=== PATIENT | female | born 1985 | race Caucasian/White ===

== ENCOUNTER 2018-04-02 20:37 | Emergency (ER) | payer SELFPAY ==
--- NOTE | 2018-04-02 22:00 | EDM.PDOC ---
ED HPI GENERAL MEDICAL PROBLEM - General Chief Complaint: Flank Pain Stated Complaint: KIDNEY PAIN Time Seen by Provider: 04/02/18 22:00 Source of Information: Reports: Patient History Limitations: Reports: No Limitations - History of Present Illness INITIAL COMMENTS - FREE TEXT/NARRATIVE: 2-year-old female presents to the [facility] flank painthat stayed in her left flank. Came on about 1730 hrs. tonight. She has a history of renal stones but hasn't had stone for a couple of years. She also however has a right flank pelon- abdominal pain rating down to the groin. Should fever chills nausea or vomiting. She's had urinary tract infections related to stone disease in the past. She's had no dysuria urgency frequency or foul smell to her urine. Has noticed no nose any blood in the urine. Associated nausea without any vomiti. She did not eat any supper. She's had previous total bowel hysterectomy and BSO because of precancerous changes to the cervix and also large left ovarian cyst that looked worrisome. She does get occasional hot flushes from menopausal symptoms Onset: Today Onset Date: 04/02/18 Onset Time: 17:30 Duration: Hour(s): Location: Reports: Back (left and right flank pain left is the worst.), Radiates to (ight flank pain radiates down to the groin.) Quality: Reports: Ache, Sharp, Stabbing, Other Severity: Moderate (ll acute component to the pain) Improves with: Reports: None (10.) Worsens with: Reports: None Context: Denies: Activity (no position is carpal), Exercise, Lifting, Sick Contact, Trauma, Other Associated Symptoms: Reports: Loss of Appetite, Nausea/Vomiting. 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: Other (see below) (none.) Left Flank Pain Score (Numeric/FACES): 8 - Related Data Allergies Allergy/AdvReac Type Severity Reaction Status Date / Time No Known Allergies Allergy Verified 04/02/18 21:01 Home Meds: Home Meds Hydrochlorothiazide 25 mg PO DAILY 04/02/18 [History] Lisinopril 10 mg PO DAILY 04/02/18 [History] Potassium Chloride 10 meq PO DAILY 04/02/18 [History] Past Medical History Cardiovascular History: Reports: Hypertension - Past Surgical History GI Surgical History: Reports: Hernia Repair/Other Female Surgical History: Reports: Hysterectomy, Kidney stone extraction Musculoskeletal Surgical History: Reports: Shoulder Surgery Social & Family History - Tobacco Use Smoking Status *Q: Current Every Day Smoker Years of Tobacco use: 15 Packs/Tins Daily: 0.5 - Caffeine Use Caffeine Use: Reports: Soda - Alcohol Use Alcohol Use History: Yes - Recreational Drug Use Recreational Drug Use: No - Living Situation & Occupation Occupation: Employed ED ROS GENERAL - Review of Systems Review Of Systems: See Below Constitutional: Reports: Malaise, Weakness, Fatigue, Decreased Appetite. Denies : Fever, Chills HEENT: Reports: No Symptoms Respiratory: Reports: No Symptoms Cardiovascular: Reports: No Symptoms Endocrine: Reports: No Symptoms GI/Abdominal: Reports: Abdominal Pain (right pelon-abdominal pain rating down to the right groin.Sourav the right flank however.) : Reports: Flank Pain, Frequency. Denies: Discharge, Dysuria, Irregular Menses, Pain, Urgency (ateral flank pain worse in the left as compared to the right.), Urinary Retention Musculoskeletal: Reports: Back Pain (bilateral flank pain) Skin: Reports: No Symptoms Neurological: Reports: No Symptoms Psychiatric: Reports: No Symptoms Hematologic/Lymphatic: Reports: No Symptoms Immunologic: Reports: No Symptoms ED EXAM,LOWER BACK PAIN/INJURY - Physical Exam Exam: See Below Exam Limited By: No Limitations General Appearance: Alert, WD/WN, Mild Distress Eye Exam: Bilateral Eye: Normal Inspection Neck: Normal Inspection, Supple, Non-Tender, Full Range of Motion. No: Lymphadenopathy (L), Lymphadenopathy (R) Respiratory/Chest: No Respiratory Distress, Lungs Clear, Normal Breath Sounds, No Accessory Muscle Use Cardiovascular: Regular Rate, Rhythm, No Edema, No Murmur, No Rub, Tachycardia ( achycardia at rest 10 5/m.) GI/Abdominal: Normal Bowel Sounds, Soft, Non-Tender, No Organomegaly, Pelvis Stable, Tender. No: Guarding, Rigid (tenderness right upper quadrant of the abdomen and right hemiabdomen. No masses or rebound or guarding noted), Rebound Back Exam: CVA Tenderness (L), CVA Tenderness (R) (bilaterally we on the left as compared to the right.) Extremities: Normal Inspection, Normal Range of Motion, Non-Tender, No Pedal Edema Neurological: Alert, Normal Mood/Affect, Normal Dorsiflexion, CN II-XII Intact Psychiatric: Normal Affect, Normal Mood Skin Exam: Warm, Dry, Intact, Normal Color, No Rash Course - Vital Signs Last Recorded V/S: Last Vital Signs Temp 36.8 C 04/02/18 20:58 Pulse 105 H 04/02/18 20:58 Resp 18 04/02/18 20:58 BP 129/89 04/02/18 20:58 Pulse Ox 99 04/02/18 20:58 - Orders/Labs/Meds Orders: Active Orders 24 hr Category Date Time Status Abdomen Pelvis w Cont [CT] Stat Exams 04/03/18 00:03 Taken Abdomen Pelvis wo Cont [CT] Stat Exams 04/02/18 22:07 Taken Dextrose 5%-0.9% NaCl [Dextrose 5%-Normal Saline] 1,000 Med 04/02/18 22:15 Active ml IV ASDIRECTED Medication Orders Dextrose/Sodium Chloride (Dextrose 5%-Normal Saline) 1,000 mls @ 150 mls/hr IV ASDIRECTED JANE Last Admin: 04/02/18 22:16 Dose: 150 mls/hr Labs: Laboratory Tests 04/02/18 04/02/18 04/02/18 Range/Units 00:00 00:00 00:00 WBC 9.51 (3.98-10.04) K/mm3 RBC 4.27 (3.98-5.22) M/mm3 Hgb 15.2 (11.2-15.7) gm/L Hct 42.1 (34.1-44.9) % MCV 98.6 H (79.4-94.8) fl MCH 35.6 H (25.6-32.2) pg MCHC 36.1 H (32.2-35.5) g/dl RDW Std Deviation 43.8 (36.4-46.3) fL Plt Count 184 (182-369) K/mm3 MPV 12.3 (9.4-12.3) fl Neutrophils % (Manual) 72 H (40-60) % Band Neutrophils % 0 (0-10) % Lymphocytes % (Manual) 21 (20-40) % Atypical Lymphs % 0 % Monocytes % (Manual) 4 (2-10) % Eosinophils % (Manual) 0 L (0.7-5.8) % Basophils % (Manual) 3 H (0.1-1.2) Platelet Estimate Adequate Plt Morphology Comment Normal RBC Morph Comment Normal D-Dimer, Quantitative < 0.19 L (0.19-0.50) mg/L Sodium 134 L (136-145) mEq/L Potassium 2.9 L (3.5-5.1) mEq/L Chloride 95 L (98-107) mEq/L Carbon Dioxide 28 (21-32) mEq/L Anion Gap 13.9 (5-15) BUN 11 (7-18) mg/dL Creatinine 0.8 (0.55-1.02) mg/dL Est Cr Clr Drug Dosing 77.35 mL/min Estimated GFR (MDRD) > 60 (>60) mL/min BUN/Creatinine Ratio 13.8 L (14-18) Glucose 96 (74-106) mg/dL Lactic Acid (0.4-2.0) mmol/L Calcium 9.4 (8.5-10.1) mg/dL Total Bilirubin 1.8 H (0.2-1.0) mg/dL AST 126 H (15-37) U/L ALT 79 H (14-59) U/L Alkaline Phosphatase 109 (46-116) U/L C-Reactive Protein < 0.2 (<1.0) mg/dL Total Protein 8.0 (6.4-8.2) g/dl Albumin 4.4 (3.4-5.0) g/dl Globulin 3.6 gm/dL Albumin/Globulin Ratio 1.2 (1-2) Urine Color (Yellow) Urine Appearance (Clear) Urine pH (5.0-8.0) Ur Specific [place] (1.005-1.030) Urine Protein (Negative) Urine Glucose (UA) (Negative) Urine Ketones (Negative) Urine Occult Blood (Negative) Urine Nitrite (Negative) Urine Bilirubin (Negative) Urine Urobilinogen (0.2-1.0) Ur Leukocyte Esterase (Negative) Urine RBC (0-5) /hpf Urine WBC (0-5) /hpf Ur Epithelial Cells (0-5) /hpf Urine Bacteria (FEW) /hpf Hyaline Casts (0-5) /lpf Urine Mucus (FEW) /hpf Acetaminophen 0 L (10-30) ug/mL 04/02/18 04/02/18 Range/Units 21:05 23:58 WBC (3.98-10.04) K/mm3 RBC (3.98-5.22) M/mm3 Hgb (11.2-15.7) gm/L Hct (34.1-44.9) % MCV (79.4-94.8) fl MCH (25.6-32.2) pg MCHC (32.2-35.5) g/dl RDW Std Deviation (36.4-46.3) fL Plt Count (182-369) K/mm3 MPV (9.4-12.3) fl Neutrophils % (Manual) (40-60) % Band Neutrophils % (0-10) % Lymphocytes % (Manual) (20-40) % Atypical Lymphs % % Monocytes % (Manual) (2-10) % Eosinophils % (Manual) (0.7-5.8) % Basophils % (Manual) (0.1-1.2) Platelet Estimate Plt Morphology Comment RBC Morph Comment D-Dimer, Quantitative (0.19-0.50) mg/L Sodium (136-145) mEq/L Potassium (3.5-5.1) mEq/L Chloride (98-107) mEq/L Carbon Dioxide (21-32) mEq/L Anion Gap (5-15) BUN (7-18) mg/dL Creatinine (0.55-1.02) mg/dL Est Cr Clr Drug Dosing mL/min Estimated GFR (MDRD) (>60) mL/min BUN/Creatinine Ratio (14-18) Glucose (74-106) mg/dL Lactic Acid 0.6 (0.4-2.0) mmol/L Calcium (8.5-10.1) mg/dL Total Bilirubin (0.2-1.0) mg/dL AST (15-37) U/L ALT (14-59) U/L Alkaline Phosphatase (46-116) U/L C-Reactive Protein (<1.0) mg/dL Total Protein (6.4-8.2) g/dl Albumin (3.4-5.0) g/dl Globulin gm/dL Albumin/Globulin Ratio (1-2) Urine Color Dark yellow (Yellow) Urine Appearance Cloudy H (Clear) Urine pH 6.0 (5.0-8.0) Ur Specific [place] > or = 1.030 (1.005-1.030) Urine Protein 2+ H (Negative) Urine Glucose (UA) Negative (Negative) Urine Ketones Trace H (Negative) Urine Occult Blood Negative (Negative) Urine Nitrite Negative (Negative) Urine Bilirubin 1+ H (Negative) Urine Urobilinogen 1.0 (0.2-1.0) Ur Leukocyte Esterase Negative (Negative) Urine RBC 0-5 (0-5) /hpf Urine WBC 0-5 (0-5) /hpf Ur Epithelial Cells 10-20 H (0-5) /hpf Urine Bacteria Many H (FEW) /hpf Hyaline Casts 10-20 H (0-5) /lpf Urine Mucus Few (FEW) /hpf Acetaminophen (10-30) ug/mL Meds: Medications Generic Name Dose Route Start Last Admin Trade Name Freq PRN Reason Stop Dose Admin Dextrose/Sodium Chloride 1,000 mls @ 150 mls/hr 04/02/18 22:15 04/02/18 22:16 Dextrose 5%-Normal Saline IV 150 mls/hr ASDIRECTED JANE Administration Discontinued Medications Generic Name Dose Route Start Last Admin Trade Name Freq PRN Reason Stop Dose Admin Hydromorphone HCl 0.5 mg 04/02/18 22:06 04/02/18 22:17 Dilaudid IVPUSH 04/02/18 22:07 0.5 mg ONETIME ONE Administration Iopamidol 125 ml 04/03/18 00:22 04/03/18 00:39 Isovue-300 (61%) IVPUSH 04/03/18 00:23 125 ml ONETIME ONE Administration Metoclopramide HCl 7.5 mg 04/02/18 22:06 04/02/18 22:16 Reglan IVPUSH 04/02/18 22:07 7.5 mg ONETIME ONE Administration - Radiology Interpretation Free Text/Narrative:: 32-year-old female presents to the ED with sudden onset of severe left flank pain about 1730 hrs.Within the hour she also developed right flank pain that radiates down towards the right groin. The pain in the left flank is worsen the pain on the right side. Right flank pain has persisted without any radiation into the abdomen or groin. Associated nausea without vomiting. Patient has a history of multiple renal stones in the past. She is also had a history of urinary tract infections related to stone disease. Patient has frequency but has no regular hematuria that she is aware of. Plan IV D5 normal saline 150 mils per hour we'll give Dilaudid 0.5 mg IV for pain relief with Reglan 7.5 mg IV for nausea relief. Urinalysis to be collected. CT abdomen to be done per renal protocol. - Re-Assessments/Exams Free Text/Narrative Re-Assessment/Exam: 04/02/18 23:51 Urinalysis shows specific gravity of be to be greater than 1.030. 2+ proteinuria negative glucose trace of ketones 1+ bilirubin leukocyte Estrace is negative. 1020 epithelial cells many bacteria 10-20 hyaline casts.patient is completed CT of the abdomen and pelvis per renal protocol. She is multiple stones in both renal parenchyma 4 on the right and 3 on the left.Not find any stones within the ureter however but they are very difficult to follow down to the urinary bladder. There appears to be a fluid filled massn the pelvis on the right side.,suspect ovarian cyst.there is an abnormality in the central part of the liver along the falx. The etiology includes me other than possible fatty deposition. It almost looks like there is an area ofnecrosis of liver tissue.I'm going to await [employer] report in this regard 04/03/18 00:04 V rad radiologist did call and has concerns with the appearance of her liver as well. He reports the liver is very heterogenous and mildly enlarged. There is significant fatty replacement in the region of the falciform form ligament and with near fluid attenuation in the inferior right lobe of the liver. This has the appearance of possible hepatic necrosis. Patient does admit to drinking a large amount of alcohol. She does not use any street drugs or intravenous drugs. She has not taken any excessive amount of Tylenol ever.The only other finding is a 5.1 x 3.1 right ovarian cyst. He identified several small consultations within the tissues of the kidneys but nothing obstructing the ureters. Therefore CT the abdomen will be repeated with IV contrast. Also labs will now be ordered in regards to liver function studies. It may be simply fatty liver disease from excessive alcohol use. 04/03/18 00:01: Labs reveal a white count of 9.51. Differential pending hemoglobin is 15.2 with hematocrit of 42.1. MCV is mildly elevated at 98.6 no doubt from alcohol use. D-dimer is less than 0.19. Sodium 134 potassium low at 2.9. Chloride is 95. Bicarbonate is 28. And a gap is 13.9 BUN was 11. Glucose is 96. Lactic acid was 0.6. Calcium 9.4. Bilirubin total is 1.8. AST is 126 ALT is 79. Alkaline phosphatase is 109. C-reactive protein less than 0.2. 04/03/18 01:19 CT of the abdomen and pelvis has now been completed with IV contrast. It reveals no hepatic vascular abnormality portal veins hepatic veins and hepatic arteries are patent. Again noted is a heterogenous parenchymal density involving the liver which is felt to be abnormal fatty deposition. The cystic ovary on the right side is essentially not taking up any more blood supply than normal.will be recommended that she has a repeat pelvic ultrasound in 6-8 weeks to look at the right ovarian cyst. Departure - Departure Time of Disposition: 01:20 Disposition: Home, Self-Care 01 Condition: Fair Clinical Impression: Abdominal pain Qualifiers: Abdominal location: right lower quadrant Qualified Code(s): R10.31 - Right lower quadrant pain - Discharge Information Instructions: Abdominal Pain, Adult, [id number] Referrals: Christin Cooper PA-C [Primary Care Provider] - Forms: ED Department Discharge Additional Instructions: valuation the emergency room tonight in regards to sudden onset of bilateral flank pain particularly the left versus the right. Concern for passage of a kidney stone was entertained since you have had stones many times in the past. Also then developed right sided abdominal pain rating down towards the groin.Concern therefore was for possible kidney infection. Urinalysis proved to be negative for any signs of infective process. CT scan of the pelvis was done with contrast initially and suggested an abnormality within the liver concerning for possible lack of blood supply ordered of liver tissue. It reveals several small stones within the kidney tissues but no signs of any obstructing stones in any of the ureters. A 5.1 cm right ovarian cyst which I suspect is the cause of your lower abdominal right-sided pain. No signs of appendicitis existed. Because of the abnormal looking liver and inability todefine a cause CT the abdomen and pelvis was performed with IV contrast. This ruled out any problems with the liver in terms of blood supply patterns there is no sign of blood clots blood flow to the liver is normal there is an area of abnormal fat accumulation along the falx which is a wall between the left and right side of the liver. Is likely due to heavy alcohol use.Therefore no other restrictions were advised at this time except for trying to cut down alcohol in Regards to the 5.1 cm right ovarian cyst that you will require further follow- up with an [facility] doctor in about 6-8 weeks time to have a repeat pelvic ultrasound to make sure the cyst reabsorbs on its own. If it gets much larger they can rupture or twist on itself and cause terrible pain and may in fact require surgical removal.at this time Motrin 600 mg every 6 hours is all but his is advised for pain relief. Usually the pain settles down over. 3-5 days. - My Orders Last 24 Hours: My Active Orders 04/02/18 22:07 Abdomen Pelvis wo Cont [CT] Stat 04/02/18 22:15 Dextrose 5%-0.9% NaCl [Dextrose 5%-Normal Saline] 1,000 ml IV ASDIRECTED 04/03/18 00:03 Abdomen Pelvis w Cont [CT] Stat - Assessment/Plan Last 24 Hours: My Active Orders 04/02/18 22:07 Abdomen Pelvis wo Cont [CT] Stat 04/02/18 22:15 Dextrose 5%-0.9% NaCl [Dextrose 5%-Normal Saline] 1,000 ml IV ASDIRECTED 04/03/18 00:03 Abdomen Pelvis w Cont [CT] Stat
[2018-04-02] MEDS ORDERED: Metoclopramide 10 MG/2 ML SDV IVPUSH ONE (22:06)
[2018-04-02] MEDS ORDERED: HYDROmorphone 0.5 MG/0.5 ML SYRINGE IVPUSH ONE (22:06)
[2018-04-02] MEDS ORDERED: Dextrose 5%-0.9% NaCl 1,000 ML IV SCH (22:15)
[2018-04-03] MEDS ORDERED: Iopamidol 612 MG/ML 150 ML Bottle IVPUSH ONE (00:22)
--- NOTE | 2018-04-03 07:55 | CT ---
CT abdomen and pelvis Technique: Multiple axial sections were obtained from above the dome of the diaphragm inferiorly through the pubic symphysis. Intravenous and oral contrast not utilized. Study has been performed as a ureteral stone protocol. Comparison: No prior study. Findings: Visualized lung bases are clear. Liver is diffusely heterogeneous in appearance. More focal low density is seen between the right and left lobes of the liver. Adrenal glands show no nodule. Small nonobstructing stones are felt to be present within both kidneys located within the renal pyramids and calyces. No hydronephrosis is seen. No abnormal calcifications seen along the course of the ureters. No bladder calculi are seen. Spleen size is normal. Pancreas shows no discrete abnormality. Aorta shows no aneurysmal dilatation. No retroperitoneal adenopathy or mesenteric abnormalities are seen. Cystic lesion is identified within the pelvis measuring up to 5.1 cm which appears to represent a right ovarian cyst. Bone window settings were reviewed which appear within normal limits for the patient's age. Impression: 1. Diffusely abnormal appearance of the liver. Differential includes toxic insult, irregular fatty infiltration as well as drug reaction. 2. 5.1 cm cyst which is likely from the right ovary within the pelvis. Pelvic ultrasound could be considered to act as baseline for follow-up. 3. Small nonobstructing calculi within the renal pyramids and calyces without ureteral stone. Diagnostic code #3 Agree with preliminary report issued by [employer] (preliminary [facility] report dictated on 04/03/18, 1:54 AM Central Time)
--- NOTE | 2018-04-03 07:55 | CT ---
CT abdomen and pelvis Technique: Multiple axial sections were obtained from above the dome of the diaphragm inferiorly through the pubic symphysis. Study is obtained in arterial, portal venous phase and 5 minute delays. Comparison: Prior noncontrast CT exam. Findings: Small portion of the visualized lung bases are clear. Hepatic vasculature appears normal. Liver again is noted to be heterogeneous. Adrenal glands show no nodule. Spleen is normal. Kidneys show symmetric contrast enhancement. Delayed images show contrast throughout the ureters into the bladder. Gallbladder contains no calcified gallstones. Pancreas shows no discrete abnormality. Aorta shows no aneurysmal dilatation. No retroperitoneal adenopathy or mesenteric abnormalities are seen. No pelvic mass or adenopathy is seen. Cyst within the right adnexa better seen due to enhancement of the cyst nichols on current study. Three cysts are seen with largest cyst measuring 4.4 cm and smaller cysts measuring 2 cm. No free fluid is seen. No inflammatory change is noted. Bone window settings were reviewed which appear within normal limits for the patient's age. Impression: 1. Diffusely heterogeneous liver again noted. Differential as previously described. 2. Three cysts from the right ovary with largest measuring 4.4 cm and other 2 adjacent cysts measure 2 cm. As mentioned previously, baseline pelvic ultrasound could be considered. 3. No additional abnormality seen on CT study of the abdomen and pelvis. Diagnostic code #3 Agree with preliminary report issued by [employer] (preliminary [facility] report dictated on 04/03/18, 1:54 AM Central Time)
== END 2018-04-03 01:35 | disposition home or self-care (01) ==
LOC: JD.ED 20:37
DX: R10.31 Right lower quadrant pain (principal); I10 Essential (primary) hypertension; F17.210 Nicotine dependence, cigarettes, uncomplicated; Z79.899 Other long term (current) drug therapy
CPT/HCPCS: 36415; 74176; 74177; 80053; 81001; 83605; 85007; 85027; 85379; 86140; 96361; 96374; 96375; 99284; G0480; J1170; J2765; J7042; Q9967

== ENCOUNTER 2018-08-22 19:14 | Emergency (ER) | payer OTHER, BC ==
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
--- NOTE | 2018-08-23 14:10 | CR ---
Cervical spine: AP, lateral and odontoid views of the cervical spine were obtained. Mild disc space narrowing is seen at C5-C6. Mild posterior osteophytes are noted at C5-C6. Minimal retrolisthesis of C5 on C6 is noted. Cervical curve is slightly abnormal. No discrete fracture or other bony abnormality is seen. Impression: 1. Mild degenerative change at C5-C6. 2. Abnormal cervical curvature which may be degenerative in etiology versus muscle spasm. 3. No acute bony abnormality is seen. Diagnostic code #3 I agree with preliminary report issued by [facility] ([facility] report finalized on 08/22/18, 10:03 PM Central Time)
== END 2018-08-22 21:22 | disposition home or self-care (01) ==
LOC: JD.ED 19:14
DX: S16.1XXA Strain of muscle, fascia and tendon at neck level, initial encounter (principal); F17.210 Nicotine dependence, cigarettes, uncomplicated; I10 Essential (primary) hypertension; Z79.899 Other long term (current) drug therapy; V89.2XXA Person injured in unspecified motor-vehicle accident, traffic, initial encounter
CPT/HCPCS: 72040; 72040-26; 99283; 99284